=== PATIENT | female | born 1985 | race African-American/Black ===

== ENCOUNTER 2022-05-01 04:15 | Inpatient (IN) | payer OTHER ==
[2022-05-01] MEDS: DEXTROSE 5%-LACTATED RINGERS 1,000 ML IV SCH ×2 (05:00→21:00)
[2022-05-01] MEDS ORDERED: AMPICILLIN - 2 GM in SODIUM CHLORIDE 100 ML IVPB ONE (05:30)
[2022-05-01] MEDS ORDERED: AMPICILLIN SODIUM 2 GM VIAL ONE (05:40)
[2022-05-01 06:23] LABS: BASO % 0.5 % (0-2.0); EOS % 0.9 % (0-4.5); HEMATOCRIT 34.3 % (32.4-45.2); HEMOGLOBIN 11.5 GM/dL (10.7-15.3); LYMPH % 20.7 % (8-40); MCH 30.5 pg (25.7-33.7); MCHC 33.6 g/dl (32.0-36.0); MEAN CELL VOLUME 90.8 fl (80-96); MEAN PLT VOLUME 8.4 fl (7.5-11.1); MONO % 7.3 % (3.8-10.2); NEUT % 70.6 % (42.8-82.8); PLATELET COUNT 256 10^3/uL (134-434); RBC 3.77 M/mm3 (3.60-5.2); RDW 13.6 % (11.6-15.6); WHITE BLOOD COUNT 9.7 K/mm3 (4.0-10.0)
[2022-05-01 06:29] LABS: INR 0.98 (0.83-1.09); PROTHROMBIN TIME (PATIENT) 11.3 SEC (9.7-13.0)
[2022-05-01 06:31] LABS: ACTIVATED PTT 28.5 SECONDS (25.2-36.5)
[2022-05-01 06:41] VITALS: BMI 28.3
[2022-05-01 06:44] LABS: BLOOD UREA NITROGEN 5.5 mg/dL (7-18); CALCIUM 9.2 mg/dL (8.5-10.1)
[2022-05-01 06:48] LABS: CREATININE 0.5 mg/dL (0.55-1.3)
[2022-05-01 07:38] LABS: HIV INTERPRETATION NEGATIVE (NEGATIVE)
[2022-05-01] MEDS ORDERED: PROMETHAZINE HCL 25 MG/1 ML VIAL IVPUSH ONE (09:24)
[2022-05-01] MEDS ORDERED: DINOPROSTONE 10 MG VAGINAL SUPPOSITORY VG ONE (09:30)
[2022-05-01] MEDS ORDERED: ELECTROLYTE-148 SOLN 1,000 ML IV SCH (09:30)
[2022-05-01] MEDS ORDERED: AMPICILLIN SODIUM 1 GM VIAL ONE ×4 (09:35→20:54)
[2022-05-01] MEDS: AMPICILLIN - 1 GM in SODIUM CHLORIDE 100 ML IVPB SCH ×4 (09:50→21:20)
[2022-05-01] MEDS ORDERED: BUTORPHANOL TARTRATE 1 MG/ML VIAL IVPB ONE (13:24)
[2022-05-01] MEDS ORDERED: OXYTOCIN 30 UNITS in 0.9% NS 30 UNIT/500 ML INFUS.BAG IVPB SCH (15:30)
[2022-05-01] MEDS ORDERED: OXYTOCIN 30 UNITS in 0.9% NS 30 UNIT/500 ML INFUS.BAG IVPB ONE (16:04)
[2022-05-01] MEDS ORDERED: BUTORPHANOL TARTRATE 2 MG/ML VIAL ONE (18:03)
[2022-05-01] MEDS ORDERED: PROMETHAZINE HCL 25 MG/1 ML VIAL ONE (18:03)
[2022-05-01] MEDS ORDERED: FENTANYL/BUPIVACAINE/NS/PF - PCEA - 50 ML DISP.SYRIN EP ONE (20:55)
[2022-05-01] MEDS ORDERED: NALOXONE HCL 0.4 MG/ML VIAL IVPUSH PRN (21:11)
[2022-05-01] MEDS ORDERED: BUPIVACAINE HCL/PF 0.25% (2.5MG/ML) 10 ML VIAL ONE (21:14)
[2022-05-01] MEDS ORDERED: FENTANYL/BUPIVACAINE/NS/PF - PCEA - 50 ML DISP.SYRIN EP SCH (21:15)
[2022-05-02] MEDS ORDERED: METHYLERGONOVINE MALEATE 0.2 MG/1 ML AMP IM PRN
[2022-05-02] MEDS ORDERED: BISACODYL 10 MG SUPP.RECT RC PRN
[2022-05-02] MEDS ORDERED: WITCH HAZEL 50% (TUCKS) 40 PAD/JAR PAD TP PRN
[2022-05-02] MEDS ORDERED: OXYTOCIN 20 UNITS in 0.9% NS 20 UNIT/1,000 ML INFUS.BAG IV SCH
[2022-05-02] MEDS ORDERED: BENZOCAINE 28 GM HEMORRHOIDAL OINTMENT TP PRN
[2022-05-02] MEDS ORDERED: BENZOCAINE 20% 57 GM BOTTLE TP PRN
[2022-05-02] MEDS ORDERED: ACETAMINOPHEN 325 MG TABLET (FP) PO PRN
[2022-05-02] MEDS ORDERED: oxyCODONE HCL 5 MG TABLET PO PRN
[2022-05-02 02:41] VITALS: RESP 18
[2022-05-02 09:52] LABS: BASO % 0.4 % (0-2.0); EOS % 0.3 % (0-4.5); HEMATOCRIT 37.3 % (32.4-45.2); HEMOGLOBIN 12.3 GM/dL (10.7-15.3); LYMPH % 15.8 % (8-40); MCH 30.1 pg (25.7-33.7); MCHC 32.9 g/dl (32.0-36.0); MEAN CELL VOLUME 91.5 fl (80-96); MEAN PLT VOLUME 8.3 fl (7.5-11.1); MONO % 9.6 % (3.8-10.2); NEUT % 73.9 % (42.8-82.8); PLATELET COUNT 268 10^3/uL (134-434); RBC 4.07 M/mm3 (3.60-5.2); RDW 13.6 % (11.6-15.6); WHITE BLOOD COUNT 15.3 K/mm3 (4.0-10.0)
[2022-05-02] MEDS: PRENATAL VITAMINS W/ FOLIC ACID TABLET (FP) PO SCH (10:36)
[2022-05-02] MEDS: IBUPROFEN 600 MG TABLET (FP) PO PRN (14:30)
[2022-05-03] MEDS: IBUPROFEN 600 MG TABLET (FP) PO PRN (05:59)
[2022-05-03 09:03] VITALS: BP 102/69; PULSE 69; TEMP 97
[2022-05-03] MEDS: PRENATAL VITAMINS W/ FOLIC ACID TABLET (FP) PO SCH (10:00)
[2022-05-03] MEDS ORDERED: FLU VACC QS2022-23(6MOS UP)/PF 60 MCG/0.5 ML SYRINGE IM ONE (10:00)
[2022-05-03 11:31] LABS: POC NITRAZINE POS
[2022-05-03] MEDS ORDERED: SENNOSIDES/DOCUSATE COMBO (SENNA PLUS) TABLET (UD) PO PRN (22:00)
== END 2022-05-03 14:50 | disposition home or self-care (01) | DRG 807 ==
LOC: JLDR 04:15 → J3W 05-02 01:43
PROVIDERS: ADMIT Obstetrics & Gynecology; ATTEND Obstetrics & Gynecology
PROC: 10E0XZZ Delivery of Products of Conception, External Approach (ICD-10-PCS; principal; 2022-05-01)
PROC: 3E0P7VZ Introduction of Hormone into Female Reproductive, Via Natural or Artificial Opening (ICD-10-PCS; 2022-05-01)
PROC: 3E033VJ Introduction of Other Hormone into Peripheral Vein, Percutaneous Approach (ICD-10-PCS; 2022-05-01)
DX: O42.02 Full-term premature rupture of membranes, onset of labor within 24 hours of rupture (principal); Z37.0 Single live birth; Z3A.38 38 weeks gestation of pregnancy
CPT/HCPCS: 36415; 59409; 80048; 83986-QW; 85025; 85610; 85730; 86780; 86850; 86900; 86901; 87389; C9803-CS; G0008; Q2036; U0003; U0005

== ENCOUNTER 2023-09-03 17:35 | Inpatient (IN) | payer OTHER ==
[2023-09-03] MEDS: ELECTROLYTE-148 SOLN 1,000 ML IV SCH (17:45)
[2023-09-03] MEDS ORDERED: OXYTOCIN 20 UNITS in 0.9% NS 20 UNIT/1,000 ML INFUS.BAG IV ONE (17:55)
[2023-09-03] MEDS ORDERED: LIDOCAINE HCL 1% PRESERVATIVE FREE - 30ML VIAL ONE (17:55)
[2023-09-03] MEDS: OXYTOCIN 20 UNITS in 0.9% NS 20 UNIT/1,000 ML INFUS.BAG IV SCH (18:05)
[2023-09-03] MEDS ORDERED: BENZOCAINE 28 GM HEMORRHOIDAL OINTMENT TP PRN (18:19)
[2023-09-03] MEDS ORDERED: BENZOCAINE 20% 57 GM BOTTLE TP PRN (18:19)
[2023-09-03] MEDS ORDERED: WITCH HAZEL 50% (TUCKS) 40 PAD/JAR PAD TP PRN (18:19)
[2023-09-03] MEDS ORDERED: METHYLERGONOVINE MALEATE 0.2 MG/1 ML AMP IM PRN (18:19)
[2023-09-03] MEDS ORDERED: ACETAMINOPHEN 325 MG TABLET (FP) PO PRN (18:19)
[2023-09-03] MEDS ORDERED: oxyCODONE HCL 5 MG TABLET PO PRN (18:19)
[2023-09-03] MEDS ORDERED: BISACODYL 10 MG SUPP.RECT RC PRN (18:19)
[2023-09-03 18:26] VITALS: BMI 29.8
[2023-09-03] MEDS ORDERED: IBUPROFEN 600 MG TABLET (FP) PO ONE (18:56)
[2023-09-03] MEDS: IBUPROFEN 600 MG TABLET (FP) PO PRN (19:00)
[2023-09-03 19:12] LABS: BASO % 0.4 % (0-2.0); EOS % 0.7 % (0-4.5); HEMATOCRIT 39.9 % (32.4-45.2); HEMOGLOBIN 13.2 GM/dL (10.7-15.3); LYMPH % 15.2 % (8-40); MCHC 33.2 g/dl (32.0-36.0); MEAN CELL VOLUME 90.4 fl (80-96); MEAN PLT VOLUME 8.6 fl (7.5-11.1); MONO % 6.6 % (3.8-10.2); NEUT % 77.1 % (42.8-82.8); PLATELET COUNT 224 10^3/uL (134-434); RBC 4.41 M/mm3 (3.60-5.2); RDW 14.4 % (11.6-15.6); WHITE BLOOD COUNT 10.4 K/mm3 (4.0-10.0)
[2023-09-03 19:19] LABS: INR 1.02 (0.83-1.09); PROTHROMBIN TIME (PATIENT) 11.8 SEC (9.7-13.0)
[2023-09-03 19:25] LABS: POTASSIUM 3.7 mmol/L (3.5-5.1)
[2023-09-03 19:26] LABS: CALCIUM 9.3 mg/dL (8.5-10.1)
[2023-09-03 19:27] LABS: BLOOD UREA NITROGEN 9.8 mg/dL (7-18)
[2023-09-03 19:30] LABS: CREATININE 0.8 mg/dL (0.55-1.3)
[2023-09-03 20:24] LABS: HIV INTERPRETATION NEGATIVE (NEGATIVE)
[2023-09-03 22:41] VITALS: RESP 18
[2023-09-04 08:36] LABS: BASO % 0.4 % (0-2.0); EOS % 0.9 % (0-4.5); HEMATOCRIT 36.9 % (32.4-45.2); HEMOGLOBIN 12.6 GM/dL (10.7-15.3); LYMPH % 20.2 % (8-40); MCH 30.7 pg (25.7-33.7); MCHC 34.3 g/dl (32.0-36.0); MEAN CELL VOLUME 89.7 fl (80-96); MEAN PLT VOLUME 8.7 fl (7.5-11.1); MONO % 8.2 % (3.8-10.2); NEUT % 70.3 % (42.8-82.8); PLATELET COUNT 209 10^3/uL (134-434); RBC 4.11 M/mm3 (3.60-5.2); RDW 14.4 % (11.6-15.6)
[2023-09-04] MEDS: FERROUS SO4 325 MG TABLET (FP) PO SCH (09:46)
[2023-09-04] MEDS: PRENATAL VITAMINS W/ FOLIC ACID TABLET (FP) PO SCH (09:46)
[2023-09-04] MEDS: DIPHTH,PERTUSS(ACELL),TET 0.5 ML DISP.SYRIN IM ONE (15:03)
[2023-09-04] MEDS ORDERED: SENNOSIDES/DOCUSATE COMBO (SENNA PLUS) TABLET (UD) PO PRN (22:00)
[2023-09-05 10:22] VITALS: BP 110/70; PULSE 80; TEMP 98
== END 2023-09-05 12:05 | disposition home or self-care (01) | DRG 807 ==
LOC: JDEL 17:35 → JLDR 17:45 → J3W 20:31
PROVIDERS: ADMIT Obstetrics & Gynecology; ATTEND Obstetrics & Gynecology
PROC: 10E0XZZ Delivery of Products of Conception, External Approach (ICD-10-PCS; principal; 2023-09-03)
DX: O48.0 Post-term pregnancy (principal); Z37.0 Single live birth; Z3A.40 40 weeks gestation of pregnancy
CPT/HCPCS: 36415; 80048; 82962; 85025; 85610; 85730; 86780; 86850; 86900; 86901; 87389; 90715